=== PATIENT | male | born 1995 | race Two or more races ===

== ENCOUNTER 2017-07-07 15:55 | Emergency (ER) | payer MEDICAID, OTHER, SELFPAY ==
[~2017-07-07] VITALS: Ht 182.9 cm; Wt 121.2 kg
[2017-07-07 15:57] VITALS: BP 161/95
[2017-07-07] MEDS ORDERED: IBUPROFEN 200 MG TABLET ONE (16:41)
[2017-07-07] MEDS ORDERED: IBUPROFEN 200 MG TABLET PO ONE (17:00)
== END 2017-07-07 16:51 | disposition home or self-care (01) ==
LOC: ED 16:46
DX: S43.421A Sprain of right rotator cuff capsule, initial encounter (principal); G89.11 Acute pain due to trauma; X50.1XXA Overexertion from prolonged static or awkward postures, initial encounter; Y93.E6 Activity, residential relocation; Y92.098 Other place in other non-institutional residence as the place of occurrence of the external cause; Y99.8 Other external cause status
CPT/HCPCS: 29505; 99284

== ENCOUNTER 2017-08-12 17:42 | Emergency (ER) | payer MEDICAID ==
[~2017-08-12] VITALS: Ht 185.4 cm; Wt 123.6 kg
[2017-08-12 19:29] LABS: BASOPHILS # (AUTO) 0.03 x10^3/uL (0-0.1); BASOPHILS % (AUTO) 0 % (0-1); EOSINOPHILS # (AUTO) 0.09 x10^3/uL (0-0.4); EOSINOPHILS % (AUTO) 1 % (1-7); LYMPHOCYTES # (AUTO) 2.22 x10^3/uL (1-3.4); LYMPHOCYTES % (AUTO) 22 % (22-44); MD NO; MEAN CORPUSCULAR HEMOGLOBIN 30.6 pg (27.5-34.5); MEAN CORPUSCULAR HGB CONC 34.8 g/dL (33.2-36.2); MEAN CORPUSCULAR VOLUME 87.8 fL (81-97); MEAN PLATELET VOLUME 7.6 fL (7.4-10.4); MONOCYTES # (AUTO) 0.48 x10^3/uL (0.2-0.8); MONOCYTES % (AUTO) 5 % (2-9); NEUTROPHILS # (AUTO) 7.32 x10^3/uL (1.8-6.8); NEUTROPHILS % (AUTO) 72 % (42-75); PLATELET COUNT 349 x10^3/uL (130-400); RED BLOOD COUNT 5.61 x10^6/uL (4.38-5.82); RED CELL DISTRIBUTION WIDTH 13.8 % (9.4-14.8)
[2017-08-12 19:36] LABS: ALANINE AMINOTRANSFERASE 58 U/L (12-78); ALBUMIN 4.1 g/dL (3.4-5.0); ANION GAP 8 mmol/L (5-15); CALCIUM 9.2 mg/dL (8.5-10.1); CHLORIDE 106 mmol/L (98-107); CREATININE 1.11 mg/dL (0.7-1.3)
[2017-08-12 19:40] LABS: ALKALINE PHOSPHATASE 70 U/L (45-117); BILIRUBIN,TOTAL 0.6 mg/dL (0.2-1.0); TOTAL PROTEIN 7.7 g/dL (6.4-8.2); TROPONIN I < 0.015 ng/mL (0.000-0.045)
[2017-08-12] MEDS ORDERED: ONDANSETRON ODT 4 MG ONE (21:23)
[2017-08-12] MEDS ORDERED: KETOROLAC 30 MG/1 ML ONE (21:24)
[2017-08-12] MEDS ORDERED: ONDANSETRON ODT 4 MG PO ONE (21:30)
[2017-08-12] MEDS ORDERED: KETOROLAC 30 MG/1 ML IM ONE (21:30)
[2017-08-12] MEDS ORDERED: AMOXICILLIN 500 MG CAPSULE PO ONE (22:30)
[2017-08-12] MEDS ORDERED: ACETAMINOPHEN 500 MG TABLET PO ONE (22:30)
[2017-08-12] MEDS ORDERED: ACETAMINOPHEN 500 MG TABLET ONE (23:29)
[2017-08-12 23:32] VITALS: BP 141/70
== END 2017-08-12 23:44 | disposition home or self-care (01) ==
LOC: ED 20:59
DX: R07.89 Other chest pain (principal); H66.91 Otitis media, unspecified, right ear; I10 Essential (primary) hypertension
CPT/HCPCS: 36415; 71046; 80053; 84484; 85025; 93005; 96372; 99285; J1885; Q0162

== ENCOUNTER 2017-09-27 07:09 | Emergency (ER) | payer MEDICAID ==
[~2017-09-27] VITALS: Ht 182.9 cm; Wt 121.6 kg
[2017-09-27] MEDS ORDERED: LISI-170 PO (07:28)
[2017-09-27] MEDS ORDERED: ASPIRIN 81 MG TABLET CHEW ONE (07:32)
[2017-09-27] MEDS ORDERED: ASPIRIN 81 MG TABLET CHEW PO ONE (08:00)
[2017-09-27] MEDS ORDERED: SODIUM CHLORIDE FLUSH 10ML SYR IVF ONE (08:00)
[2017-09-27 08:01] LABS: INTERNATIONAL NORMALIZED RATIO 0.96 (0.93-1.1); PROTHROMBIN TIME 9.9 Seconds (9.6-11.5)
[2017-09-27 08:05] LABS: ALANINE AMINOTRANSFERASE 46 U/L (12-78); ALBUMIN 3.8 g/dL (3.4-5.0); ANION GAP 7 mmol/L (5-15); CALCIUM 8.4 mg/dL (8.5-10.1); CHLORIDE 105 mmol/L (98-107); CREATININE 0.98 mg/dL (0.7-1.3)
[2017-09-27 08:10] LABS: ALKALINE PHOSPHATASE 57 U/L (45-117); TOTAL PROTEIN 6.8 g/dL (6.4-8.2); TROPONIN I < 0.015 ng/mL (0.000-0.045)
[2017-09-27 08:12] LABS: BASOPHILS # (AUTO) 0.03 x10^3/uL (0-0.1); BASOPHILS % (AUTO) 0 % (0-1); EOSINOPHILS # (AUTO) 0.03 x10^3/uL (0-0.4); EOSINOPHILS % (AUTO) 0 % (1-7); LYMPHOCYTES # (AUTO) 1.32 x10^3/uL (1-3.4); LYMPHOCYTES % (AUTO) 13 % (22-44); MD NO; MEAN CORPUSCULAR HEMOGLOBIN 30.3 pg (27.5-34.5); MEAN CORPUSCULAR HGB CONC 34.2 g/dL (33.2-36.2); MEAN CORPUSCULAR VOLUME 88.8 fL (81-97); MEAN PLATELET VOLUME 8.1 fL (7.4-10.4); MONOCYTES # (AUTO) 0.54 x10^3/uL (0.2-0.8); MONOCYTES % (AUTO) 5 % (2-9); NEUTROPHILS % (AUTO) 82 % (42-75); PLATELET COUNT 225 x10^3/uL (130-400); RED BLOOD COUNT 5.51 x10^6/uL (4.38-5.82); RED CELL DISTRIBUTION WIDTH 13.4 % (9.4-14.8)
[2017-09-27] MEDS ORDERED: HYDROcodone/APAP 5/325 TABLET ONE (08:17)
[2017-09-27 08:21] VITALS: BP 132/80
[2017-09-27] MEDS ORDERED: HYDROcodone/APAP 5/325 TABLET PO ONE (08:30)
== END 2017-09-27 09:22 | disposition home or self-care (01) ==
LOC: ED 08:01
DX: R07.89 Other chest pain (principal); I10 Essential (primary) hypertension
CPT/HCPCS: 36415; 71045; 80053; 84484; 85025; 85610; 93005; 99285

== ENCOUNTER 2017-09-30 06:48 | Emergency (ER) | payer MEDICAID ==
[~2017-09-30] VITALS: Ht 182.9 cm; Wt 122.2 kg
[~2017-09-30 06:48] MED LIST: LISI-170 PO
[2017-09-30 06:49] VITALS: BP 153/90
[2017-09-30] MEDS ORDERED: KETOROLAC 30 MG/1 ML ONE (07:15)
[2017-09-30] MEDS ORDERED: ONDANSETRON ODT 4 MG ONE (07:15)
[2017-09-30] MEDS ORDERED: KETOROLAC 30 MG/1 ML IM ONE (07:30)
[2017-09-30] MEDS ORDERED: ONDANSETRON ODT 4 MG PO ONE (07:30)
== END 2017-09-30 08:35 | disposition home or self-care (01) ==
LOC: ED 07:54
DX: J00 Acute nasopharyngitis [common cold] (principal); I10 Essential (primary) hypertension
CPT/HCPCS: 71046; 93005; 96372; 99284; J1885; Q0162

== ENCOUNTER 2017-10-16 07:29 | Emergency (ER) | payer MEDICAID ==
[~2017-10-16] VITALS: Ht 182.9 cm; Wt 121.6 kg
[2017-10-16 08:23] LABS: BASOPHILS # (AUTO) 0.03 x10^3/uL (0-0.1); BASOPHILS % (AUTO) 0 % (0-1); EOSINOPHILS # (AUTO) 0.04 x10^3/uL (0-0.4); EOSINOPHILS % (AUTO) 0 % (1-7); LYMPHOCYTES # (AUTO) 1.54 x10^3/uL (1-3.4); LYMPHOCYTES % (AUTO) 19 % (22-44); MD NO; MEAN CORPUSCULAR HEMOGLOBIN 30.3 pg (27.5-34.5); MEAN CORPUSCULAR HGB CONC 34.4 g/dL (33.2-36.2); MEAN CORPUSCULAR VOLUME 87.9 fL (81-97); MEAN PLATELET VOLUME 7.8 fL (7.4-10.4); MONOCYTES % (AUTO) 7 % (2-9); NEUTROPHILS # (AUTO) 6.11 x10^3/uL (1.8-6.8); NEUTROPHILS % (AUTO) 74 % (42-75); PLATELET COUNT 291 x10^3/uL (130-400); RED BLOOD COUNT 5.47 x10^6/uL (4.38-5.82); RED CELL DISTRIBUTION WIDTH 13.5 % (9.4-14.8)
[2017-10-16 08:35] LABS: ALBUMIN 3.7 g/dL (3.4-5.0); ANION GAP 10 mmol/L (5-15); CHLORIDE 109 mmol/L (98-107); CREATININE 1.01 mg/dL (0.7-1.3)
[2017-10-16 08:35] LABS: MICROSCOPIC NOT IND
[2017-10-16 08:39] LABS: CULTURE INDICATED? NO
[2017-10-16 09:16] VITALS: BP 152/77
== END 2017-10-16 09:40 | disposition home or self-care (01) ==
LOC: ED 08:48
DX: S39.011A Strain of muscle, fascia and tendon of abdomen, initial encounter (principal); G89.29 Other chronic pain; R05 Cough; I10 Essential (primary) hypertension; X58.XXXA Exposure to other specified factors, initial encounter; Y93.89 Activity, other specified; Y92.89 Other specified places as the place of occurrence of the external cause; Y99.8 Other external cause status
CPT/HCPCS: 36415; 76857; 80048; 81003; 82040; 85025; 99285

== ENCOUNTER 2017-11-01 22:16 | Emergency (ER) | payer MEDICAID ==
[~2017-11-01] VITALS: Ht 182.9 cm; Wt 117.3 kg
[2017-11-01] MEDS ORDERED: ACETAMINOPHEN 500 MG TABLET ONE (23:29)
[2017-11-01] MEDS ORDERED: PROMETHAZINE 25MG TABLET ONE (23:29)
[2017-11-01] MEDS ORDERED: PROMETHAZINE 25MG TABLET PO PRN (23:30)
[2017-11-01] MEDS ORDERED: ACETAMINOPHEN 500 MG TABLET PO ONE (23:30)
[2017-11-02 00:08] VITALS: BP 131/68
== END 2017-11-02 00:11 | disposition home or self-care (01) ==
LOC: ED 11-02 00:01
DX: R07.89 Other chest pain (principal); I10 Essential (primary) hypertension
CPT/HCPCS: 93005; 99283; Q0169

== ENCOUNTER 2017-11-19 18:57 | Emergency (ER) | payer MEDICAID ==
[~2017-11-19] VITALS: Ht 185.4 cm; Wt 118.1 kg
[2017-11-19 21:03] VITALS: BP 155/91
== END 2017-11-19 21:05 | disposition home or self-care (01) ==
LOC: ED 20:56
DX: M25.531 Pain in right wrist (principal); I10 Essential (primary) hypertension
CPT/HCPCS: 99282

== ENCOUNTER 2017-11-20 11:32 | Emergency (ER) | payer MEDICAID ==
[~2017-11-20] VITALS: Ht 185.4 cm; Wt 117.5 kg
[2017-11-20 11:33] VITALS: BP 152/88
[2017-11-20] MEDS ORDERED: DEXAMETHASONE 4 MG TABLET ONE (11:55)
[2017-11-20] MEDS ORDERED: CEFAZOLIN 1,000 MG ONE (11:55)
[2017-11-20] MEDS ORDERED: SULFAMETH./TRIMETHOPRIM DS 800MG/160MG TABLET ONE (11:56)
[2017-11-20] MEDS ORDERED: CEFAZOLIN 1,000 MG IM ONE (12:00)
[2017-11-20] MEDS ORDERED: DEXAMETHASONE 4 MG TABLET PO ONE (12:00)
[2017-11-20] MEDS ORDERED: SULFAMETH./TRIMETHOPRIM DS 800MG/160MG TABLET PO ONE (12:00)
== END 2017-11-20 12:36 | disposition home or self-care (01) ==
LOC: ED 11:46
DX: S60.861A Insect bite (nonvenomous) of right wrist, initial encounter (principal); T78.40XA Allergy, unspecified, initial encounter; L08.9 Local infection of the skin and subcutaneous tissue, unspecified; I10 Essential (primary) hypertension; W57.XXXA Bitten or stung by nonvenomous insect and other nonvenomous arthropods, initial encounter; Y93.89 Activity, other specified; Y92.89 Other specified places as the place of occurrence of the external cause; Y99.8 Other external cause status
CPT/HCPCS: 96372; 99283; J0690

== ENCOUNTER 2018-04-14 18:31 | Emergency (ER) | payer SELFPAY ==
[~2018-04-14] VITALS: Ht 185.4 cm; Wt 118.0 kg
[2018-04-14 18:43] VITALS: BP 168/89
[2018-04-14] MEDS ORDERED: KETOROLAC 30 MG/1 ML ONE (18:54)
[2018-04-14] MEDS ORDERED: DIAZEPAM 5 MG TABLET ONE (18:54)
[2018-04-14] MEDS ORDERED: KETOROLAC 30 MG/1 ML IM ONE (19:00)
[2018-04-14] MEDS ORDERED: DIAZEPAM 5 MG TABLET PO ONE (19:00)
[2018-04-14] MEDS ORDERED: PLEASE ENTER HEIGHT AND WEIGHT MC SCH (19:00)
[2018-04-14] MEDS ORDERED: OXYcodone/APAP 5/325MG TABLET PO ONE (20:30)
[2018-04-14] MEDS ORDERED: OXYcodone/APAP 5/325MG TABLET ONE (20:39)
== END 2018-04-14 21:15 | disposition home or self-care (01) ==
LOC: ED 20:14
DX: S39.012A Strain of muscle, fascia and tendon of lower back, initial encounter (principal); I10 Essential (primary) hypertension; X58.XXXA Exposure to other specified factors, initial encounter; Y93.89 Activity, other specified; Y92.89 Other specified places as the place of occurrence of the external cause; Y99.8 Other external cause status
CPT/HCPCS: 72110; 96372; 99284; J1885

== ENCOUNTER 2018-04-20 17:19 | Emergency (ER) | payer OTHER ==
[~2018-04-20] VITALS: Ht 185.4 cm; Wt 115.2 kg
[2018-04-20 17:24] VITALS: BP 154/86
[2018-04-20] MEDS ORDERED: METHOCARBAMOL 500 MG TABLET PO ONE (18:30)
[2018-04-20] MEDS ORDERED: KETOROLAC 30 MG/1 ML IM ONE ×2 (18:30→19:00)
[2018-04-20] MEDS ORDERED: HYDROcodone/APAP 5/325 TABLET PO ONE (18:30)
[2018-04-20] MEDS ORDERED: KETOROLAC 30 MG/1 ML ONE (18:33)
[2018-04-20] MEDS ORDERED: HYDROcodone/APAP 5/325 TABLET ONE (18:33)
[2018-04-20] MEDS ORDERED: METHOCARBAMOL 750 MG TABLET ONE (18:33)
[2018-04-20] MEDS ORDERED: METHOCARBAMOL 750 MG TABLET PO ONE (19:00)
== END 2018-04-20 18:57 | disposition home or self-care (01) ==
LOC: ED 18:10
DX: G89.11 Acute pain due to trauma (principal); M54.42 Lumbago with sciatica, left side; I10 Essential (primary) hypertension; X58.XXXA Exposure to other specified factors, initial encounter; Y93.89 Activity, other specified; Y92.89 Other specified places as the place of occurrence of the external cause; Y99.8 Other external cause status
CPT/HCPCS: 96372; 99283; J1885

== ENCOUNTER 2018-11-19 07:24 | Emergency (ER) | payer MEDICAID ==
[~2018-11-19] VITALS: Ht 185.4 cm; Wt 116.2 kg
[2018-11-19 07:27] VITALS: BP 156/83
--- NOTE | 2018-11-19 07:45 | NUR ---
INTEGRITY ANALYST: [facility] AM[facility]UL[facility]ORY STEADY GAIT
[2018-11-19] MEDS ORDERED: ONDANSETRON ODT 4 MG PO ONE (08:00)
[2018-11-19] MEDS ORDERED: KETOROLAC 30 MG/1 ML IM ONE (08:00)
[2018-11-19] MEDS ORDERED: ONDANSETRON ODT 4 MG ONE (08:03)
[2018-11-19] MEDS ORDERED: KETOROLAC 30 MG/1 ML ONE (08:04)
--- NOTE | 2018-11-19 08:39 | NUR ---
Patient/Caregiver given discharge instructions and they have confirmed that they understand the instructions. Patient ambulatory with steady gait.
== END 2018-11-19 08:39 | disposition home or self-care (01) ==
LOC: ED 08:33
DX: J06.9 Acute upper respiratory infection, unspecified (principal); I10 Essential (primary) hypertension; F17.210 Nicotine dependence, cigarettes, uncomplicated
CPT/HCPCS: 71046; 93005; 96372; 99283; J1885; Q0162

== ENCOUNTER 2018-12-08 09:36 | Emergency (ER) | payer MEDICAID ==
[~2018-12-08] VITALS: Ht 185.4 cm; Wt 115.7 kg
[2018-12-08 09:43] VITALS: BP 142/83
[2018-12-08] MEDS ORDERED: HYDROcodone/APAP 5/325 TABLET ONE (10:05)
[2018-12-08] MEDS ORDERED: HYDROcodone/APAP 5/325 TABLET PO ONE (10:30)
--- NOTE | 2018-12-08 10:59 | NUR ---
PT STATES PAIN IS 6/10 AT THIS TIME AFTER PAIN MEDICATION
--- NOTE | 2018-12-08 11:00 | NUR ---
Patient/Caregiver given discharge instructions and they have confirmed that they understand the instructions. Patient ambulatory with steady gait.
== END 2018-12-08 11:02 ==
LOC: ED 10:56
DX: K08.89 Other specified disorders of teeth and supporting structures (principal)
CPT/HCPCS: 99283

== ENCOUNTER 2018-12-17 14:35 | Emergency (ER) | payer MEDICAID ==
[~2018-12-17] VITALS: Ht 185.4 cm; Wt 117.3 kg
--- NOTE | 2018-12-17 16:26 | NUR ---
PT TO ROOM FROM LOBBY
[2018-12-17] MEDS ORDERED: DIPHENHYDRAMINE 25 MG CAPSULE ONE (16:48)
[2018-12-17] MEDS ORDERED: DIPHENHYDRAMINE 25 MG CAPSULE PO ONE (17:00)
[2018-12-17 17:32] VITALS: BP 128/56
== END 2018-12-17 17:35 | disposition home or self-care (01) ==
LOC: ED 17:19
DX: T78.40XA Allergy, unspecified, initial encounter (principal); R21 Rash and other nonspecific skin eruption; X58.XXXA Exposure to other specified factors, initial encounter
CPT/HCPCS: 99283; J7512; Q0163

== ENCOUNTER 2019-01-08 15:41 | Emergency (ER) | payer MEDICAID ==
[~2019-01-08] VITALS: Ht 185.4 cm; Wt 118.0 kg
[2019-01-08 15:54] VITALS: BP 150/74
== END 2019-01-08 19:07 | disposition home or self-care (01) ==
LOC: ED 19:00
DX: S39.012A Strain of muscle, fascia and tendon of lower back, initial encounter (principal); E83.51 Hypocalcemia; X58.XXXA Exposure to other specified factors, initial encounter; Y93.89 Activity, other specified; Y92.89 Other specified places as the place of occurrence of the external cause; Y99.8 Other external cause status
CPT/HCPCS: 36415; 72131; 74021; 80053; 81003; 85025; 96372; 99284; J1885

== ENCOUNTER 2019-10-11 22:15 | Emergency (ER) | payer MEDICAID ==
[~2019-10-11] VITALS: Ht 185.4 cm; Wt 126.0 kg
[2019-10-11 22:18] VITALS: BP 153/88
--- NOTE | 2019-10-11 23:17 | NUR ---
PT TO ROOM FROM LOBBY
[2019-10-11] MEDS ORDERED: DIAZEPAM 5 MG TABLET ONE (23:47)
--- NOTE | 2019-10-11 23:59 | NUR ---
PT MEDICATED PER EMAR. 5 RIGHTS ADDRESSED. PT AGREED TO VALIUM HOWEVER REQUESTED NOT TO HAVE KENALOG AT THIS TIME.
[2019-10-12] MEDS ORDERED: TRIAMCINOLONE ACETONIDE 40 MG/ML, 1ML IM ONE
[2019-10-12] MEDS ORDERED: DIAZEPAM 5 MG TABLET PO ONE
[2019-10-12] MEDS ORDERED: BUPIVACAINE/PF 0.5% INFIL ONE
[2019-10-12] MEDS ORDERED: BUPIVACAINE 0.25% ONE (00:07)
--- NOTE | 2019-10-12 00:40 | NUR ---
DR. HINES AT BEDSIDE.
--- NOTE | 2019-10-12 01:22 | NUR ---
PATIENT STATES STILL HAVING PAIN BUT MUCH LESSER NOW.
--- NOTE | 2019-10-12 01:50 | NUR ---
Patient/Caregiver given discharge instructions and they have confirmed that they understand the instructions. Patient ambulatory with steady gait.
== END 2019-10-12 01:52 | disposition home or self-care (01) ==
LOC: ED 23:32
DX: M62.838 Other muscle spasm (principal); M79.18 Myalgia, other site
CPT/HCPCS: 20552; 99284

== ENCOUNTER 2020-02-04 13:48 | Emergency (ER) | payer MEDICAID ==
[~2020-02-04] VITALS: Ht 185.4 cm; Wt 113.3 kg
--- NOTE | 2020-02-04 14:52 | NUR ---
REPORT RECEIVED FROM [facility]. PLAN OF CARE DISCUSSED.
[2020-02-04] MEDS ORDERED: LORazepam 1MG TABLET PO ONE (15:30)
[2020-02-04] MEDS ORDERED: ONDANSETRON ODT 4 MG PO ONE (15:30)
[2020-02-04 15:49] LABS: BASOPHILS % (AUTO) 0 % (0-1); EOSINOPHILS % (AUTO) 0 % (1-7); LYMPHOCYTES # (AUTO) 0.83 x10^3/uL (1-3.4); LYMPHOCYTES % (AUTO) 10 % (22-44); MD NO; MEAN CORPUSCULAR HEMOGLOBIN 30.7 pg (27.5-34.5); MEAN CORPUSCULAR HGB CONC 34.6 g/dL (33.2-36.2); MEAN CORPUSCULAR VOLUME 88.8 fL (81-97); MEAN PLATELET VOLUME 8.2 fL (7.4-10.4); MONOCYTES # (AUTO) 0.24 x10^3/uL (0.2-0.8); MONOCYTES % (AUTO) 3 % (2-9); NEUTROPHILS # (AUTO) 7.24 x10^3/uL (1.8-6.8); NEUTROPHILS % (AUTO) 87 % (42-75); PLATELET COUNT 252 x10^3/uL (130-400); RED CELL DISTRIBUTION WIDTH 13.2 % (9.4-14.8)
--- NOTE | 2020-02-04 15:52 | NUR ---
TASK RN: PT SITTING UP IN [facility] [place]; NAD NOTED. REPORTS "SEVERE ANXIETY" SECONDARY TO QUITTING OPIOIDS ON SATURDAY. PT REQUESTING MEDICATIONS FOR "DEHYDRATION AND ANXIETY". ERP AWARE. BP/SPO2/ECG MONITORING IN PLACE. NSR ON MONITOR.
[2020-02-04 15:54] VITALS: BP 130/70
[2020-02-04] MEDS ORDERED: ONDANSETRON ODT 4 MG ONE (15:56)
[2020-02-04] MEDS ORDERED: LORazepam 1MG TABLET ONE (15:57)
[2020-02-04 15:58] LABS: ALANINE AMINOTRANSFERASE 54 U/L (12-78); ALBUMIN 4.4 g/dL (3.4-5.0); ANION GAP 8 mmol/L (5-15); CHLORIDE 111 mmol/L (98-107); CREATININE 0.92 mg/dL (0.7-1.3)
[2020-02-04 16:00] LABS: ALKALINE PHOSPHATASE 52 U/L (45-117); BILIRUBIN,TOTAL 1.3 mg/dL (0.2-1.0); TOTAL PROTEIN 6.5 g/dL (6.4-8.2)
--- NOTE | 2020-02-04 16:00 | NUR ---
TASK RN: PT MEDICATED PER EMAR FOR NAUSEA/ANXIETY
--- NOTE | 2020-02-04 17:07 | NUR ---
Patient given discharge instructions and they have confirmed that they understand the instructions. Patient ambulatory with steady gait.
== END 2020-02-04 17:08 | disposition home or self-care (01) ==
LOC: ED 16:10
DX: F41.1 Generalized anxiety disorder (principal); F11.23 Opioid dependence with withdrawal; R11.0 Nausea; R55 Syncope and collapse; I10 Essential (primary) hypertension; F17.200 Nicotine dependence, unspecified, uncomplicated
CPT/HCPCS: 36415; 71045; 80053; 85025; 93005; 99285; Q0162

== ENCOUNTER 2020-03-18 22:33 | Emergency (ER) | payer MEDICAID ==
[~2020-03-18] VITALS: Ht 185.4 cm; Wt 115.2 kg
[2020-03-18 22:45] VITALS: BP 144/90
[2020-03-19] MEDS ORDERED: OXYcodone/APAP 5/325MG TABLET PO ONE (00:30)
[2020-03-19] MEDS ORDERED: OXYcodone/APAP 5/325MG TABLET ONE (00:30)
== END 2020-03-19 00:37 | disposition home or self-care (01) ==
LOC: ED 23:30
DX: S93.402A Sprain of unspecified ligament of left ankle, initial encounter (principal); S97.02XA Crushing injury of left ankle, initial encounter; M79.89 Other specified soft tissue disorders; I10 Essential (primary) hypertension; F17.210 Nicotine dependence, cigarettes, uncomplicated; W01.0XXA Fall on same level from slipping, tripping and stumbling without subsequent striking against object, initial encounter; Y93.89 Activity, other specified; Y92.098 Other place in other non-institutional residence as the place of occurrence of the external cause; Y99.8 Other external cause status
CPT/HCPCS: 99284; 99406

== ENCOUNTER 2020-04-25 08:27 | Emergency (ER) | payer MEDICAID ==
[~2020-04-25] VITALS: Ht 185.4 cm; Wt 112.3 kg
--- NOTE | 2020-04-25 09:57 | NUR ---
STAFF MINE WARFARE OFFICER: PT TO ROOM FROM LOBBY
[2020-04-25 10:23] LABS: BASOPHILS % (AUTO) 0 % (0-1); EOSINOPHILS % (AUTO) 0 % (1-7); LYMPHOCYTES % (AUTO) 12 % (22-44); MEAN CORPUSCULAR HEMOGLOBIN 29.8 pg (27.5-34.5); MEAN PLATELET VOLUME 7.8 fL (7.4-10.4); MONOCYTES % (AUTO) 5 % (2-9); NEUTROPHILS % (AUTO) 82 % (42-75); PLATELET COUNT 326 x10^3/uL (130-400); RED BLOOD COUNT 5.87 x10^6/uL (4.38-5.82); RED CELL DISTRIBUTION WIDTH 13.3 % (9.4-14.8)
--- NOTE | 2020-04-25 10:23 | NUR ---
CRAMPS: STARTED LAST NOC IN LEGS WHILE IN BED, MOVED TO HAND AND STOMACH. CAST BOOT LT FOOT FOR FX. CURRENTLY ON LIGHT DUTY: OFFICE WORK. NO MEDS TAKEN FOR CRAMPING. REPORTS CRAMPS ARE INTERMITTENT; NONE CURRENTLY. DENIES ANXIETY. CARDIAC MONITORING IN PROGRESS: HR VARYING 88-220. DENIES CARDIAC HX, COUGH, FEVER, N/V, DIARRHEA, CONSTIPATION. SENSE OF SMELL AND TASTE INTACT. REPORTS DEEP BREATHING "BOTHERS ME". A&OX4, RESP CURRENTLY EVEN & UNLABORED, SPEECH CLEAR, SKIN WNL.
[2020-04-25 10:34] VITALS: BP 129/86
[2020-04-25 10:38] LABS: ANION GAP 6 mmol/L (5-15); CALCIUM 9.4 mg/dL (8.5-10.1); CHLORIDE 109 mmol/L (98-107)
[2020-04-25 10:42] LABS: ALANINE AMINOTRANSFERASE 36 U/L (12-78); ALKALINE PHOSPHATASE 68 U/L (45-117); CREATININE 1.03 mg/dL (0.7-1.3)
[2020-04-25 10:53] LABS: MD SCAN
== END 2020-04-25 12:18 | disposition home or self-care (01) ==
LOC: ED 11:50
DX: M62.831 Muscle spasm of calf (principal); M62.838 Other muscle spasm
CPT/HCPCS: 36415; 80053; 85025; 85379; 93005; 99284

== ENCOUNTER 2020-06-16 21:54 | Emergency (ER) | payer MEDICAID ==
[~2020-06-16] VITALS: Ht 185.4 cm; Wt 112.0 kg
[2020-06-16] MEDS ORDERED: AMOXICILLIN/CLAV 875-125MG TABLET PO ONE (22:14)
[2020-06-16] MEDS ORDERED: HYDROcodone/APAP 5/325 TABLET PO ONE (22:14)
[2020-06-16] MEDS ORDERED: HYDROcodone/APAP 5/325 TABLET ONE (22:25)
[2020-06-16] MEDS ORDERED: AMOXICILLIN/CLAV 875-125MG TABLET ONE (22:25)
--- NOTE | 2020-06-16 22:29 | NUR ---
TASK RN: MEDICATED PER AUG. PAIN 03/26.
[2020-06-16 22:46] VITALS: BP 151/103
== END 2020-06-16 22:49 | disposition home or self-care (01) ==
LOC: ED 22:00
DX: K02.9 Dental caries, unspecified (principal); I10 Essential (primary) hypertension; F17.200 Nicotine dependence, unspecified, uncomplicated
CPT/HCPCS: 41800; 99284

== ENCOUNTER 2020-06-17 14:10 | Emergency (ER) | payer MEDICAID ==
[~2020-06-17] VITALS: Ht 185.4 cm; Wt 113.3 kg
--- NOTE | 2020-06-17 14:25 | NUR ---
PATIENT WALKED BACK FROM TRIAGE WITH CHIEF C/O DENTAL PAIN. PER PATIENT HE WAS HERE YESTERDAY EVENING FOR THE SAME ISSUE, AND HAD AND ABSCESS ON THE UPPER RIGHT SIDE OF HIS MOUTH DRAINED. PATIENT REPORTS INCREASED PAIN IN THE AREA, RADIATING TO THE BOTTOM PORTION OF HIS JAW, PATIENT REPORTS LOTS OF DRAINAGE AND FEVER LAST NIGHT. BENIGNO, FATHER AT SIDE, CALL LIGHT WITHIN REACH.
--- NOTE | 2020-06-17 14:50 | NUR ---
ER PROVIDER AT BEDSIDE FOR EVALUATION.
[2020-06-17 15:02] VITALS: BP 140/96
--- NOTE | 2020-06-17 15:03 | NUR ---
PATIENT SITTING IN GURNEY ON PHONE, BENIGNO, FATHER AT BEDSIDE, CALL LIGHT WITHIN REACH.
--- NOTE | 2020-06-17 15:17 | NUR ---
Patient given discharge instructions and they have confirmed that they understand the instructions. Patient stable and ambulatory with steady gait from ED with dad.
== END 2020-06-17 15:19 | disposition home or self-care (01) ==
LOC: ED 14:58
DX: K08.89 Other specified disorders of teeth and supporting structures (principal); R51.9 Headache, unspecified; I10 Essential (primary) hypertension
CPT/HCPCS: 99281

== ENCOUNTER 2020-06-17 23:29 | Emergency (ER) | payer MEDICAID ==
[~2020-06-17] VITALS: Ht 185.4 cm; Wt 113.8 kg
[2020-06-17 23:31] VITALS: BP 164/96
[2020-06-17] MEDS ORDERED: KETOROLAC 30 MG/1 ML ONE (23:47)
--- NOTE | 2020-06-17 23:56 | NUR ---
per MD order, pt given 30mg Toradol IM to right deltoid. tolerated well.
--- NOTE | 2020-06-17 23:56 | NUR ---
pt walked to room. c/o pain to right side of mouth on teeth. MD to room to jenny pt.
[2020-06-18] MEDS ORDERED: KETOROLAC 30 MG/1 ML IM ONE
--- NOTE | 2020-06-18 00:20 | NUR ---
pt a&ox4, no sign of adverse reaction. f/u and d/c instructions given to pt and he v/u.
== END 2020-06-18 00:22 | disposition home or self-care (01) ==
LOC: ED 23:55
DX: K02.9 Dental caries, unspecified (principal); I10 Essential (primary) hypertension
CPT/HCPCS: 96372; 99283; J1885

== ENCOUNTER 2020-06-28 11:02 | Emergency (ER) | payer MEDICAID ==
[~2020-06-28] VITALS: Ht 185.4 cm; Wt 113.9 kg
[2020-06-28] MEDS ORDERED: HYDROcodone/APAP 5/325 TABLET ONE (11:18)
[2020-06-28] MEDS ORDERED: HYDROcodone/APAP 5/325 TABLET PO ONE (11:30)
[2020-06-28 12:45] VITALS: BP 151/90
--- NOTE | 2020-06-28 13:09 | NUR ---
PT AMBULATED TO DISCHARGE WITH STEADY GAIT. PT ENCOURAGED TO FOLLOWUP DISCUSSED. PT EDUCATED TO RETURN TO THE ED WITH WORSENING SYMPTOMS OR CHANGE IN CONDITION.
== END 2020-06-28 13:12 | disposition home or self-care (01) ==
LOC: ED 12:02
DX: K08.89 Other specified disorders of teeth and supporting structures (principal)
CPT/HCPCS: 64400; 99284

== ENCOUNTER 2021-02-05 20:34 | Emergency (ER) | payer MEDICAID ==
[~2021-02-05] VITALS: Ht 185.4 cm; Wt 102.9 kg
[2021-02-05] MEDS ORDERED: ALBUTEROL SULFATE 2.5 MG/3 ML NPPB ONE (23:30)
[2021-02-05] MEDS ORDERED: KETOROLAC 30 MG/1 ML IM ONE (23:30)
[2021-02-05] MEDS ORDERED: AZITHROMYCIN 500 MG TABLET PO/NG ONE (23:30)
[2021-02-05] MEDS ORDERED: CEFTRIAXONE 1,000 MG IM ONE (23:30)
[2021-02-05] MEDS ORDERED: AZITHROMYCIN 500 MG TABLET ONE (23:31)
[2021-02-05] MEDS ORDERED: CEFTRIAXONE 1,000 MG ONE (23:32)
[2021-02-05] MEDS ORDERED: KETOROLAC 30 MG/1 ML ONE (23:32)
[2021-02-05] MEDS ORDERED: ALBUTEROL SULFATE 2.5 MG/3 ML ONE ×2 (23:32→23:39)
[2021-02-05 23:40] VITALS: BP 131/68
--- NOTE | 2021-02-05 23:45 | NUR ---
PT REFUSED ROCEPHIN. "IM NOT DOING ANY MORE SHOTS"
[2021-02-05] MEDS ORDERED: CEFDINIR 300 MG CAPSULE ONE (23:50)
[2021-02-06] MEDS ORDERED: CEFDINIR 300 MG CAPSULE PO/NG ONE
== END 2021-02-06 00:18 | disposition home or self-care (01) ==
LOC: ED 23:59
DX: J15.9 Unspecified bacterial pneumonia (principal); R07.89 Other chest pain; I10 Essential (primary) hypertension; J02.9 Acute pharyngitis, unspecified
CPT/HCPCS: 71045; 93005; 94640; 96372; 99284; J1885; J7512; J7613; J0696

== ENCOUNTER 2021-02-17 01:58 | Emergency (ER) | payer MEDICAID ==
[~2021-02-17] VITALS: Ht 185.4 cm; Wt 103.2 kg
[2021-02-17] MEDS ORDERED: LORazepam 1MG TABLET ONE (02:20)
[2021-02-17] MEDS ORDERED: KETOROLAC 30 MG/1 ML ONE (02:21)
[2021-02-17] MEDS ORDERED: DIPHENHYDRAMINE 50 MG CAPSULE ONE (02:21)
[2021-02-17] MEDS ORDERED: LORazepam 1MG TABLET PO ONE (02:30)
[2021-02-17] MEDS ORDERED: DIPHENHYDRAMINE 50 MG CAPSULE PO ONE (02:30)
[2021-02-17] MEDS ORDERED: KETOROLAC 60 MG/2 ML IM ONE (02:30)
--- NOTE | 2021-02-17 03:05 | NUR ---
report to urmila stone
--- NOTE | 2021-02-17 04:00 | NUR ---
PT RESTING ON GURNEY RESP EVEN AND UNLABORED NADN, VSS NO NEEDS AT THIS TIME.
[2021-02-17 05:02] VITALS: BP 115/65
--- NOTE | 2021-02-17 05:05 | NUR ---
PT RESTING ON GURNEY RESP EVEN AND UNLABORED NADN, VSS NO NEEDS AT THIS TIME.
--- NOTE | 2021-02-17 06:00 | NUR ---
Patient/Caregiver given discharge instructions and they have confirmed that they understand the instructions. Patient ambulatory with steady gait.
== END 2021-02-17 06:13 | disposition home or self-care (01) ==
LOC: ED 05:59
DX: R07.89 Other chest pain (principal); R06.00 Dyspnea, unspecified; G44.019 Episodic cluster headache, not intractable; F17.210 Nicotine dependence, cigarettes, uncomplicated; I10 Essential (primary) hypertension
CPT/HCPCS: 70450; 71045; 93005; 96372; 99284; 99406; J1885